=== PATIENT | female | born 1990 | race Caucasian/White ===

== ENCOUNTER 2017-11-24 05:42 | Observation (INO) | payer SELFPAY ==
[2017-11-24] MEDS ORDERED: NS 1,000 ML IV ONE (06:00)
--- NOTE | 2017-11-24 06:01 | EDPHY ---
H & P Stated Complaint: RIght side abd pain Time Seen by Provider: 11/24/17 06:00 HPI/ROS: HPI CHIEF COMPLAINT: Right upper quadrant abdominal pain. HISTORY OF PRESENT ILLNESS: Patient very pleasant 27-year-old female, otherwise healthy without any significant medical history, presents emergency room with right upper quadrant abdominal pain. Patient states this started around 9:00 p.m. Last night. Pain has been persistent pain is located right upper quadrant. Sharp stabbing. In her epigastric region. Denies any chest pain shortness of breath, denies back pain. Denies lower abdominal pain. Denies being or urinary symptoms. Patient states that she had Serbian food, and fish tacos and then when she tripped arrived home after work she had [email or web address] fries this made her right upper quadrant abdominal pain worse. Past Medical History: Denies significant medical history Past Surgical History: Denies significant surgical history Social History: Denies daily use of drugs alcohol tobacco. Family History: Noncontributory ROS REVIEW OF SYSTEMS: 10 Systems were reviewed and negative with the exception of the elements mentioned in the history of present illness. Exam Constitutional nontoxic, triage nursing summary reviewed, vital signs reviewed , awake/alert. Eyes normal conjunctivae and sclera, EOMI, PERRLA. HENT normal inspection, atraumatic, moist mucus membranes, no epistaxis, neck supple/ no meningismus, no raccoon eyes. Respiratory clear to auscultation bilaterally, normal breath sounds, no respiratory distress, no wheezing. Cardiovascular rate normal, regular rhythm, no murmur, no edema, distal pulses normal. Gastrointestinal mild tender palpation epigastric and right upper quadrant, reproducible on exam, no peritoneal signs, no rebound, no guarding, normal bowel sounds, no distension, no pulsatile mass. Genitourinary no CVA tenderness. Musculoskeletal no midline vertebral tenderness, full range of motion, no calf swelling, no tenderness of extremities, no meningismus, good pulses, neurovascularly intact. Skin pink, warm, & dry, no rash, skin atraumatic. Neurologic awake, alert and oriented x 3, AAOx3, moves all 4 extremities equally, motor intact, sensory intact, CN II-XII intact, normal cerebellar, normal vision, normal speech. Psychiatric normal mood/affect. Heme/Lymph/Immune no lymphadenopathy. Differential diagnosis includes but is not limited to and in no particular order : Bowel obstruction, appendicitis, gallbladder disease, diverticulitis, colitis , enteritis, perforated viscus, gastritis, GERD, esophagitis, urinary tract infection, pyelonephritis, kidney stones Medical Decision Making: Plan for this patient IV establishment IV fluid bolus , IV Dilaudid for pain control IV Zofran for nausea, ultrasound right upper quadrant, abdominal labs. test, urinalysis re-evaluate. Re-evaluation: Ultrasound of the right upper quadrant concerning for acute cholecystitis. Ultrasound shows multiple gallstones, and positive sonographic Heard sign. Given this will consult surgery. IV Invanz ordered. I have consulted General surgery Dr. Sarmiento, who will at change of shift 655am, pass on to Oncoming surgeon Dr. Balderas to see Source: Patient - Personal History LMP (Females 10-55): 8-14 Days Ago Current Tetanus/Diphtheria Vaccine: Yes Current Tetanus Diphtheria and Acellular Pertussis (TDAP): Yes - Medical/Surgical History Hx Asthma: No Hx Chronic Respiratory Disease: No Hx Diabetes: No Hx Cardiac Disease: No Hx Renal Disease: No Hx Cirrhosis: No Hx Alcoholism: No Hx HIV/AIDS: No Hx Splenectomy or Spleen Trauma: No Other PMH: right knee surgery x3 - Social History Smoking Status: Never smoked Constitutional: Initial Vital Signs Temperature (C) 36.4 C 11/24/17 05:43 Heart Rate 72 11/24/17 05:43 Respiratory Rate 18 11/24/17 05:43 Blood Pressure 103/85 H 11/24/17 05:43 O2 Sat (%) 99 11/24/17 05:43 O2 Delivery Mode Room Air Allergies/Adverse Reactions: No Known Allergies Allergy (Unverified 11/24/17 05:46) Home Medications: Medication Instructions Recorded Albuterol Sulfate [Ventolin Hfa] 1 puffs IH DAILY 11/24/17 Ferrous Sulfate [Ferrous Sulf 325 325 mg PO DAILY 11/24/17 MG (*)] Hydrocodone/APAP 5/325 [[place] 1 - 2 tab PO Q4HRS PRN #20 tab 11/24/17 5/325 (*)] Ibuprofen [Motrin (*)] 200 - 400 mg PO Q6 PRN 11/24/17 Medical Decision Making - Diagnostics Imaging Results: Imaging Impressions Abdomen Ultrasound 11/24/17 06:04 Impression: 1. Cholelithiasis with positive sonographic Heard sign. The study was performed as an emergency on-call case and discussed by telephone with Dr. Donald Brown at 6:45 AM hrs. The final interpretation is concordant with the original communication. - Data Points Laboratory Results: Laboratory Results 11/24/17 06:00 11/24/17 06:00 Medications Given: Discontinued Medications Bupivacaine HCl (Sensorcaine 0.5% Vial) Confirm Administered Dose 30 ml .ROUTE .STK-MED ONE Stop: 11/24/17 08:21 Last Admin: 11/24/17 09:06 Dose: 15 ml Hydromorphone HCl (Dilaudid) 0.5 mg IVP EDNOW ONE Stop: 11/24/17 06:05 Last Admin: 11/24/17 06:14 Dose: 0.5 mg Hydromorphone HCl (Dilaudid) 0.5 mg IVP EDNOW ONE Stop: 11/24/17 07:58 Last Admin: 11/24/17 08:00 Dose: 0.5 mg Sodium Chloride (Ns) 1,000 mls @ 0 mls/hr IV EDNOW ONE; Wide Open PRN Reason: Protocol Stop: 11/24/17 06:01 Last Admin: 11/24/17 06:13 Dose: 1,000 mls Ertapenem 1 gm/ Sodium (Chloride) 100 mls @ 200 mls/hr IV EDNOW ONE PRN Reason: Protocol Stop: 11/24/17 07:14 Last Admin: 11/24/17 07:15 Dose: 100 mls Ketorolac Tromethamine (Toradol) 15 mg IVP Q6HRS [facility] Stop: 11/29/17 11:59 Last Admin: 11/24/17 10:59 Dose: 15 mg Lidocaine HCl (Lidocaine Hcl 1%) Confirm Administered Dose 300 mg .ROUTE .STK- MED ONE Stop: 11/24/17 08:21 Last Admin: 11/24/17 09:06 Dose: 150 mg Ondansetron HCl (Zofran) 4 mg IVP EDNOW ONE Stop: 11/24/17 06:05 Last Admin: 11/24/17 06:15 Dose: 4 mg Departure - Departure Disposition: To OP Cath/Surgery Clinical Impression: Acute cholecystitis Abdominal pain Qualifiers: Abdominal location: right upper quadrant Qualified Code(s): R10.11 - Right upper quadrant pain Condition: Good
[2017-11-24] MEDS ORDERED: HYDROmorphONE/DILAUDID 2 MG/ML INJ IVP ONE ×2 (06:04→07:57)
[2017-11-24] MEDS ORDERED: ONDANSETRON 4 MG/2 ML VIAL IVP ONE (06:04)
[2017-11-24 06:10] LABS: PLATELET COUNT 309 10^3/uL (150-400)
[2017-11-24] MEDS ORDERED: ERTAPENEM 1 GM in NS 100 ML IV ONE (06:45)
--- NOTE | 2017-11-24 08:17 | PDCONSULT ---
[facility] Note: Consult at the request of Dr. Champion Chief complaint: Right upper quadrant abdominal pain vomiting History of present illness: This is a 26-year-old patient who presented to the hospital after several hours of abdominal pain at work yesterday. She got off her shift at about midnight and 8 some [employer] [place] which exacerbated the problem. After which she consumed a large quantity of water and some ibuprofen. She promptly vomited in continued to have right upper quadrant colicky abdominal pain radiating to her her right chest and back. Patient is still uncomfortable pain medication has helped to reduce the pain from a separate 09/28/2003 but it is starting to return. No prior history of biliary colic. No family history of GI or gallbladder issues. The patient only has history of asthma and anemia. Ultrasound of the abdomen and pelvis demonstrate gallstones without any pericholecystic fluid. Past medical history: Asthma, anemia Past surgical history: Multiple left knee arthroscopic surgeries 2005 Medications at home: Albuterol Sulfate [Ventolin Hfa] 1 puffs IH DAILY 11/24/17 [Last Taken 11/23/17] Ferrous Sulfate [Ferrous Sulf 325 MG (*)] 325 mg PO DAILY 11/24/17 [Last Taken 11/21/17] Ibuprofen [Motrin (*)] 200 - 400 mg PO Q6 PRN 11/24/17 [Last Taken 11/24/17] Allergies: No known drug allergies Review of systems: Significant for abdominal pain otherwise all reviewed and are negative. No asthma symptoms in the last several months Family history: Significant for diabetes grandparents and aunts and uncles. Immediate family has no significant history Temp Pulse Resp BP Pulse Ox 36.7 C 62 16 119/83 H 99 11/24/17 08:02 11/24/17 08:02 11/24/17 07:48 11/24/17 08:02 11/24/17 08:02 O2 (L/minute) 2 Alert oriented mild distress due to abdominal pain right upper quadrant Sclerae anicteric pupils 3 mm reactive Oropharynx moist no lesions No JVD thyromegaly or cervical adenopathy Trachea midline Regular rate and rhythm S1-S2 audible Clear to auscultation bilaterally Abdomen soft tender in the right upper quadrant positive Heard sign. No scars no hernias No hepatosplenomegaly Extremities without edema 2+ over 2+ peripheral pulses Skin normal turgor and tone Normal affect 11/24/17 06:00 11/24/17 06:00 Total Bilirubin 0.4 mg/dL (0.1-1.4) 11/24/17 06:00 Conjugated Bilirubin 0.1 mg/dL (0.0-0.5) 11/24/17 06:00 Unconjugated Bilirubin 0.3 mg/dL (0.0-1.1) 11/24/17 06:00 AST 28 IU/L (14-46) 11/24/17 06:00 ALT 34 IU/L (9-52) 11/24/17 06:00 Ultrasound personally reviewed on PACS demonstrates cholelithiasis no pericholecystic fluid questionable wall thickening. No intra or extrahepatic hepatic dilatation. Official read pending Impression/plan: Acute cholecystitis without signs of obstruction of the biliary tree. Plan on laparoscopic cholecystectomy the risks benefits and alternatives to surgery have been outlined clearly with the patient. All questions were addressed. The risks include but are not limited to bleeding, infection and injury to the biliary system that could require additional procedures. Risk of retained stone and postoperative ERCP also discussed. Anticipate admission for observation discharge within the next 24 hr. Invanz given in the emergency room for infection prophylaxis
[2017-11-24] MEDS ORDERED: LIDOCAINE 1% 300 MG/30 ML SDV ONE (08:20)
[2017-11-24] MEDS ORDERED: BUPIVACAINE 0.5% 30 ML SDV ONE (08:20)
--- NOTE | 2017-11-24 08:30 | PDANEPAE ---
ANE History of Present Illness cholelithiasis s/f lap susana ANE Past Medical History - Pulmonary History Hx Asthma/Reactive Airway Disease: Yes Hx Oxygen in Use at Home: No - Endocrine History Hx Diabetes: No - Other Health History Other Health History: iron deficiency anemia ANE Review of Systems Review of Systems: - Exercise capacity Exercise capacity: >=4 METS ANE Patient History - Allergies Allergies/Adverse Reactions: No Known Allergies Allergy (Unverified 11/24/17 05:46) - Home Medications Home medications: home medication list seen and reviewed Home Medications: Albuterol Sulfate [Ventolin Hfa] 1 puffs IH DAILY 11/24/17 [Last Taken 11/23/17] Ferrous Sulfate [Ferrous Sulf 325 MG (*)] 325 mg PO DAILY 11/24/17 [Last Taken 11/21/17] Ibuprofen [Motrin (*)] 200 - 400 mg PO Q6 PRN 11/24/17 [Last Taken 11/24/17] - NPO status NPO Status: no food or drink >8 hours NPO Since - Liquids (Date): 11/24/17 NPO Since - Liquids (Time): 00:00 NPO Since - Solids (Date): 11/24/17 NPO Since - Solids (Time): 00:00 - Smoking Hx Smoking Status: Never smoked - Alcohol Use Alcohol Use: Rarely - Family Anes Hx Family Anes Hx: none ANE Labs/Vital Signs - Labs Result Diagrams: 11/24/17 06:00 11/24/17 06:00 - Vital Signs Blood Pressure: 119/83 Heart Rate: 62 Respiratory Rate: 16 O2 Sat (%): 99 Height: 170.18 cm Weight: 71.668 kg ANE Physical Exam - Airway Neck exam: FROM Mallampati Score: Class 2 Mouth exam: normal dental/mouth exam - Pulmonary Pulmonary: no respiratory distress - Cardiovascular Cardiovascular: regular rate and rhythym - ASA Status ASA Status: I ANE Anesthesia Plan Anesthesia Plan: general endotracheal anesthesia
[2017-11-24] MEDS ORDERED: PROPOFOL/EMULSION 500 MG/50 ML BOTTLE IV ONE (08:39)
[2017-11-24] MEDS ORDERED: fentaNYL 100 MCG/2 ML INJ ONE (08:39)
[2017-11-24] MEDS ORDERED: ROCURONIUM 50 MG/5 ML VIAL ONE (08:42)
[2017-11-24] MEDS ORDERED: LIDOCAINE 2% 100 MG/5 ML SYR ONE (08:42)
[2017-11-24] MEDS ORDERED: DEXAMETHASONE 4 MG/ML VIAL ONE ×2 (08:42)
[2017-11-24] MEDS ORDERED: ONDANSETRON 4 MG/2 ML VIAL ONE (08:42)
[2017-11-24] MEDS ORDERED: ONDANSETRON 4 MG/2 ML VIAL IVP PRN ×2 (08:46→09:28)
[2017-11-24] MEDS ORDERED: HYDROmorphONE/DILAUDID 1 MG/ML INJ IVP PRN (08:46)
[2017-11-24] MEDS ORDERED: METOCLOPRAMIDE 10 MG/2 ML VIAL IVP PRN ×2 (08:46→09:28)
--- NOTE | 2017-11-24 08:46 | POSTOPPROG ---
Post Op Note Date of Operation: 11/24/17 Surgeon: Bryce Balderas [employer]: none Anesthesiologist: Tony Penaloza Anesthesia: GET(General Endotracheal) Pre-op Diagnosis: cholecystitis Post-op Diagnosis: same Procedure: Laparoscopic cholecystectomy Inf/Abcess present in the surg proc area at time of surgery?: Yes Depth: Organ Space EBL: Minimal Specimen(s): gallbladder to permanent pathology
[2017-11-24] MEDS ORDERED: SUGAMMADEX SODIUM 200 MG/2 ML VIAL IVP ONE (09:25)
[2017-11-24] MEDS ORDERED: MEPERIDINE 25 MG/0.5 ML AMP IVP PRN (09:28)
[2017-11-24] MEDS ORDERED: HYDROmorphONE/DILAUDID 2 MG/ML INJ IVP PRN (09:28)
[2017-11-24] MEDS ORDERED: ACETAMINOPHEN 500 MG TAB PO PRN (09:28)
[2017-11-24] MEDS ORDERED: LABETALOL HCL 5 MG/ML 20 ML MDV IVP PRN (09:28)
[2017-11-24] MEDS ORDERED: DEXAMETHASONE 4 MG/ML VIAL IVP PRN (09:28)
[2017-11-24] MEDS ORDERED: LR 500 ML IV PRN (09:28)
[2017-11-24] MEDS ORDERED: oxyCODONE IR 5 MG TAB PO PRN ×2 (09:28→11:20)
[2017-11-24] MEDS ORDERED: PHENYLEPHRINE HCL 100 MCG/ML SYR IVP PRN (09:28)
[2017-11-24] MEDS ORDERED: NALOXONE HCL 0.4 MG/ML INJ IVP PRN (09:28)
[2017-11-24] MEDS ORDERED: ALBUTEROL 3 ML DEYVIAL IH PRN (09:28)
[2017-11-24] MEDS ORDERED: HYDROCODONE/APAP 5/325 TAB PO PRN (09:28)
[2017-11-24] MEDS ORDERED: PROMETHAZINE HCL 25 MG/ML INJ IVP PRN (09:28)
--- NOTE | 2017-11-24 09:47 | SUROPNOTE ---
[facility] Operative Report - Surgery Date of procedure 11/24/2017 Preop diagnosis: Cholecystitis Postop diagnosis: Same Procedure: Laparoscopic cholecystectomy. Surgeon: Bryce Balderas. Anesthesiologist: Tony Penaloza. Complications: None Specimens: Gallbladder to permanent pathology EBL: 15 mL Fluid given 1 L crystalloid Indications foot procedure: This is a 27-year-old woman with less than 24 hr history of biliary colic secondary to cholecystitis for ultrasound demonstrates stones and mild inflammation with a sonographic Heard sign. After risks benefits and alternatives to the procedure had been outlined to the patient consent was obtained. Procedure: Patient is brought to the operating room after induction of endotracheal anesthesia in supine position her abdomen is prepped chlorhexidine and draped sterilely. Time-out procedure is performed according to institutional standards. Local anesthetic is infused in skin and subcutaneous tissues of the trocar sites and open supraumbilical trocar placement was performed. The abdomen is insufflated to 15 torr with carbon dioxide working trocars were placed in the subxiphoid and right subcostal areas under direct visualization. Head up and right side up position eating is used to facilitate dissection. Gallbladder is brought the field dissection is tensely distended the gallbladder is dissected to identify the cystic duct and cystic artery in the triangle of Calot these are triply clipped and ligated the gallbladder is then taken off a somewhat intrahepatic gallbladder position using electrocautery gallbladder is placed in a bag be a small amount of bile that is spilled because of the tense nature of the gallbladder is aspirated irrigation is done until this is clear gallbladder is removed through the umbilical incision all ports were then inspected for bleeding hemostasis assured the eye and the port sites in the gallbladder bed the fascia was reapproximated after deflating the abdomen using 0 Vicryl at the level of the fascia. all 4 ports were reapproximated the skin level using 4 Monocryl. Dermabond was applied the patient awakened extubated taken to recovery room in stable condition. no immediate complications
--- NOTE | 2017-11-24 11:15 | POSTANESTH ---
Post Anesthetic Evaluation Cardiovascular Status: Normal, Stable Respiratory Status: Normal, Stable Level of Consciousness/Mental Status: Can Participate in Eval Pain Control: Adequate, Prn Tx Ordered Nausea/Vomiting Control: Adequate, Prn Tx Ordered Complications Possibly Related to Anesthesia: None Noted
[2017-11-24] MEDS ORDERED: KETOROLAC 15 MG/1 ML SDV IVP SCH (12:00)
[2017-11-24 12:24] VITALS: BP 112/64
--- NOTE | 2017-11-24 23:41 | PDDCSUM ---
Discharge Summary Discharge Summary: This 27-year-old woman who presented to the hospital for acute right upper quadrant abdominal pain. Acute cholecystitis was diagnosed. She underwent laparoscopic cholecystectomy on the morning of admission. She is now tolerating a diet pain is controlled with oral analgesia and she has Earl baseline cardiopulmonary status. Patient will be discharged home with restrictions for lifting and instructions to call with any concerns regarding hospitalization or surgery. All questions were addressed prior to discharge. Follow up in the office in 1-2 weeks
== END 2017-11-24 13:55 | disposition home or self-care (01) ==
LOC: FLD 10:25
PROVIDERS: ADMIT Surgery; ATTEND Surgery
PROC: 0FT44ZZ Resection of Gallbladder, Percutaneous Endoscopic Approach (ICD-10-PCS; principal; 2017-11-24 08:30)
DX: K81.0 Acute cholecystitis (principal)
CPT/HCPCS: 96374; G0378; J1100; J1170; J1335; J1885; J2001; J2405; J2704; J3010

== ENCOUNTER 2018-06-21 00:41 | Emergency (ER) | payer BC ==
[2018-06-21] MEDS ORDERED: KETOROLAC 15 MG/1 ML SDV IVP ONE (01:06)
[2018-06-21 01:10] LABS: PLATELET COUNT 241 10^3/uL (150-400)
--- NOTE | 2018-06-21 01:11 | EDPHY ---
H & P Stated Complaint: sharp lower abd pain x30min started during intercourse, n/Vx1 Time Seen by Provider: 06/21/18 00:44 HPI/ROS: HPI The patient presents with sharp lower abdominal pain which began about 30 min prior to presentation to the emergency department. The patient was having intercourse with her boyfriend when suddenly she had severe stabbing lower abdominal pain which was constant, and caused her to have an episode of vomiting. She does not have any vaginal bleeding. Her last menstrual period was 2 weeks ago. One week ago she switched to a new OCP. REVIEW OF SYSTEMS 10 systems were reviewed and negative with the exception of the elements mentioned in the history of present illness. PMHx: History of cholecystectomy Soc Hx: Housed PHYSICAL General Appearance: Alert, no distress Eyes: Pupils equal and round no pallor or injection ENT, Mouth: Mucous membranes moist Respiratory: There are no retractions, lungs are clear to auscultation Cardiovascular: Regular rate and rhythm Gastrointestinal: Abdomen is soft and tender in the lower quadrants, no masses , bowel sounds normal Neurological: A&O, moves all extremities Skin: Warm and dry, no rashes Psychiatric: Patient is oriented X 3, there is no agitation Source: Patient Exam Limitations: No limitations - Personal History LMP (Females 10-55): 8-14 Days Ago Current Tetanus/Diphtheria Vaccine: Yes Current Tetanus Diphtheria and Acellular Pertussis (TDAP): Yes - Medical/Surgical History Hx Asthma: No Hx Chronic Respiratory Disease: No Hx Diabetes: No Hx Cardiac Disease: No Hx Renal Disease: No Hx Cirrhosis: No Hx Alcoholism: No Hx HIV/AIDS: No Hx Splenectomy or Spleen Trauma: No Other PMH: right knee surgery x3, gallbladder sx - Social History Smoking Status: Never smoked Constitutional: Initial Vital Signs Temperature (C) 36.8 C 06/21/18 00:46 Heart Rate 80 06/21/18 00:46 Respiratory Rate 18 06/21/18 00:46 Blood Pressure 116/79 06/21/18 00:46 O2 Sat (%) 98 06/21/18 00:46 O2 Delivery Mode Room Air Allergies/Adverse Reactions: No Known Allergies Allergy (Unverified 06/21/18 00:45) Home Medications: Medication Instructions Recorded Albuterol Sulfate [Ventolin Hfa] 1 puffs IH DAILY 11/24/17 Medical Decision Making - Diagnostics Imaging Results: Pelvic ultrasound demonstrates small uterine fibroid, no identified intrauterine or extrauterine , interpreted by direct Radiology. Imaging: I viewed and interpreted images myself Differential Diagnosis: 28-year-old healthy female who presents with acute onset of lower abdominal pain which began 30 min prior to arrival while having vaginal intercourse with her boyfriend. Here, pain is moderate in severity. She has lower abdominal tenderness without rebound or guarding. Suspicious for ruptured ovarian cyst. Will perform pelvic ultrasound, basic labs. Patient's laboratory testing revealed elevated beta-hCG of approximately 1700 consistent with early . Ultrasound showed a small fibroid without any visualized. Patient reassessed and her pain is improved. Her pain could have been related to fibroid, no ovarian cyst was visualized. I discussed her positive result and ultrasound findings. Because no IUP was visualized, she will need to undergo serial HCG testing plus-minus ultrasound so that ectopic can be ruled out. [facility] I have also given her the name of the on-call OBGYN doctor. She will be discharged from the emergency department. - Data Points Laboratory Results: Laboratory Results 06/21/18 00:50 06/21/18 00:50 06/21/18 06/21/18 06/21/18 00:50 00:50 00:50 WBC RBC Hgb Hct MCV MCH MCHC RDW Plt Count MPV Neut % (Auto) Lymph % (Auto) Shannon % (Auto) Eos % (Auto) Baso % (Auto) Nucleat RBC Rel Count Absolute Neuts (auto) Absolute Lymphs (auto) Absolute Monos (auto) Absolute Eos (auto) Absolute Basos (auto) Absolute Nucleated RBC Immature Gran % Immature Gran # Sodium 135 mEq/L mEq/L (135-145) Potassium 3.5 mEq/L mEq/L (3.5-5.2) Chloride 106 mEq/L mEq/L (97-110) Carbon Dioxide 21 mEq/l L mEq/l (22-31) Anion Gap 8 mEq/L mEq/L (6-14) BUN 14 mg/dL mg/dL (7-23) Creatinine 0.7 mg/dL mg/dL (0.6-1.0) Estimated GFR > 60 Glucose 108 mg/dL H mg/dL (70-100) Calcium 9.2 mg/dL mg/dL (8.5-10.4) Beta HCG, Qual POSITIVE Beta HCG, Quant 1736.70 mIU/mL H mIU/mL (0.00-4.83) 06/21/18 00:50 WBC 7.70 10^3/uL 10^3/uL (3.80-9.50) RBC 3.96 10^6/uL L 10^6/uL (4.18-5.33) Hgb 12.2 g/dL L g/dL (12.6-16.3) Hct 36.0 % L % (38.0-47.0) MCV 90.9 fL fL (81.5-99.8) MCH 30.8 pg pg (27.9-34.1) MCHC 33.9 g/dL g/dL (32.4-36.7) RDW 12.6 % % (11.5-15.2) Plt Count 241 10^3/uL 10^3/uL (150-400) MPV 9.1 fL fL (8.7-11.7) Neut % (Auto) 50.4 % % (39.3-74.2) Lymph % (Auto) 40.4 % % (15.0-45.0) Shannon % (Auto) 7.8 % % (4.5-13.0) Eos % (Auto) 1.0 % % (0.6-7.6) Baso % (Auto) 0.3 % % (0.3-1.7) Nucleat RBC Rel Count 0.0 % % (0.0-0.2) Absolute Neuts (auto) 3.88 10^3/uL 10^3/uL (1.70-6.50) Absolute Lymphs (auto) 3.11 10^3/uL H 10^3/uL (1.00-3.00) Absolute Monos (auto) 0.60 10^3/uL 10^3/uL (0.30-0.80) Absolute Eos (auto) 0.08 10^3/uL 10^3/uL (0.03-0.40) Absolute Basos (auto) 0.02 10^3/uL 10^3/uL (0.02-0.10) Absolute Nucleated RBC 0.00 10^3/uL 10^3/uL (0-0.01) Immature Gran % 0.1 % % (0.0-1.1) Immature Gran # 0.01 10^3/uL 10^3/uL (0.00-0.10) Sodium Potassium Chloride Carbon Dioxide Anion Gap BUN Creatinine Estimated GFR Glucose Calcium Beta HCG, Qual Beta HCG, Quant Medications Given: Discontinued Medications Ketorolac Tromethamine (Toradol) 15 mg IVP EDNOW ONE Stop: 06/21/18 01:07 Last Admin: 06/21/18 01:20 Dose: Not Given Departure - Departure Disposition: Home, Routine, Self-Care Clinical Impression: Early stage of Uterine fibroid Qualifiers: Uterine leiomyoma location: unspecified location Qualified Code(s): D25.9 - Leiomyoma of uterus, unspecified Condition: Good Instructions: Abdominal Pain in (ED) Additional Instructions: Your testing today showed that you do have a small fibroid in your uterus that could be causing pain with sexual intercourse. Your blood test of was positive ([id number]). This means you have an early . However the ultrasound did not show the . Because of this you will need testing in a few days for a repeat blood test of to see if there is any risk of a tubal . I have given you the phone number of the OBGYN to call for follow-up or you can follow [facility] with [facility]. You will need a repeat blood test in approximately 48 hours. Return to the emergency department if your worse in any way. Referrals: Seble Woods DO [Doctor of Osteopathy] - As per Instructions
[2018-06-21 02:57] VITALS: BP 94/63
== END 2018-06-21 03:15 | disposition home or self-care (01) ==
DX: Z34.90 Encounter for supervision of normal pregnancy, unspecified, unspecified trimester (principal); D25.9 Leiomyoma of uterus, unspecified
CPT/HCPCS: 96374; J1885